=== PATIENT | female | born 1995 | race Caucasian/White ===

== ENCOUNTER 2016-11-25 18:21 | Emergency (ER) | payer BC ==
--- NOTE | ~2016-11-25 | ER ---
PATIENT'S NAME: [facility] AGE: 21 Y [address] ROOM: [place] [address] LOCATION: [facility] ADMIT DATE: 11/25/2016 ER/Outpatient Report DISCHARGE DATE: 11/25/2016 FAMILY PHYSICIAN: Physician, Unknown ATTENDING PHYSICIAN: Arnaud Abarca Admission date and time documented on the medical record. I saw the patient at 1835 hours. CHIEF COMPLAINT: Nausea, vomiting, diarrhea. HISTORY OF PRESENT ILLNESS: This patient is a 21-year-old female, who had abrupt onset of nausea, vomiting, perfuse watery diarrhea around 0300 hours this morning. Also, has some dysuria. Low-grade fever. No lightheadedness, dizziness, syncope or near syncope. No fall or trauma. Does have a generalized headache. No eyes, ears, nose, throat, neck, or spine pain. Generalized malaise. No chest pain or shortness of breath. Generalized abdominal pain more in the lower abdomen accompanied with nausea, vomiting and diarrhea. No joint or muscle swelling, redness, or pain. No skin eruptions or rash. No history of neuro changes, psych issues, endocrine problems. HOME MEDICATIONS: See attached medication list. ALLERGIES: PENICILLIN. SOCIAL HISTORY: Nonsmoker. Occasional intake of alcohol. SIGNIFICANT PAST MEDICAL HISTORY: Headaches, viral meningitis. OPERATIONS: Appendectomy. REVIEW OF SYSTEMS: All systems reviewed by me are negative with the exception of those discussed in the history of present illness. PHYSICAL EXAMINATION: VITAL SIGNS: Temperature 99.9 tympanic, pulse 138, respirations 17, blood pressure 196/72, O2 saturation on room air was 97%. PATIENT'S NAME: L[facility]Y [facility] AGE: 21 Y [address] ROOM: [place] [address] LOCATION: [facility] ADMIT DATE: 11/25/2016 ER/Outpatient Report DISCHARGE DATE: 11/25/2016 FAMILY PHYSICIAN: Physician, Unknown ATTENDING PHYSICIAN: Arnaud Abarca HEENT: Head: Normocephalic. Eyes: Clear. Ears: Clear TMs bilaterally. Nose: Clear. Throat: Clear. Mucous membranes moist. Teeth, jaw intact. NECK: No nuchal rigidity. No thyromegaly or cervical lymphadenopathy. SPINE: Nontender. No deformity. LUNGS: Clear. HEART: Regular. ABDOMEN: Soft. Some generalized tenderness especially in the lower abdomen. Bowel tones hyperactive. No organomegaly or abnormal mass palpable. No CVA tenderness. EXTREMITIES: No peripheral edema, cyanosis, or deformity. Neurovascularly intact. SKIN: Clear. No skin eruptions or rash. LABORATORY DATA: Procalcitonin was 0.12. Lactate was 1.4. CMS was normal except for an elevated glucose 129. Amylase and lipase were normal. CRP was elevated 1.05. White count 35699, 90 segs, 4 lymphs, 5 monos, hemoglobin was 15.3 with hematocrit 43.6, platelet count was 260963. PTT was 27, pro-time is 11.3 with an INR 1.08. Urine showed 0-2 whites, 0-2 reds, 2-5 epithelial cells, few bacteria with 4+ mucus, 2+ amorphous material per high-powered field. Stool PCR was positive for norovirus. IMPRESSION: Abrupt onset of nausea, vomiting, diarrhea secondary to norovirus. The patient has accompanied malaise and headache. PLAN: The patient was given IV normal saline, fluids, IV Zofran and Compazine for nausea, IV Benadryl and IV Toradol for headache. Discharged home. Observation. Activity as tolerated. Rest. Clear liquid diet for 24 hours and advance diet as tolerated. Zofran as needed for nausea, vomiting. Follow up with personal physician as needed. Discussion ensued with the patient concerning my findings and recommendations, she understands and agrees with treatment plan. MD CARLOS PILLAI/modl /[id number] d: 11/26/16 0146 t: 11/26/16 1809, OUTPATIENT REPORT
[~2016-11-25 18:21] MED LIST: IMITREX100 MG PO; MOTRIN800 MG PO
[2016-11-25 18:56] LABS: BASOPHIL % 0.2 %; HEMATOCRIT 43.6 % (33.0-46.0); HEMOGLOBIN 15.3 g/dL (11.0-15.0); IMMATURE GRANULOCYTE % 0.3 %; LYMPHOCYTE # 0.5 K/uL (0.8-4.0); LYMPHOCYTE % 4.3 %; MCH 30.7 pg (27.0-34.0); MCHC 35.1 gm/dL (32.0-36.5); MCV 87.4 fl (83.0-98.0); MONOCYTE # 0.6 K/uL (0.0-1.0); MONOCYTE % 4.8 %; MPV 10.1 fl (9.4-12.4); NEUTROPHIL # (ANC) 10.7 K/uL (1.8-7.8); NEUTROPHIL % 90.4 %; NRBC % 0 /100WBC (0-0.00); PLATELET COUNT 305 K/uL (150-450); RBC 4.99 M/uL (3.50-5.00); RDW-CV 11.7 % (11.9-14.6); WBC 11.9 K/uL (4.0-11.0)
[2016-11-25 19:06] LABS: BILIRUBIN URINE NEGATIVE (NEGATIVE); BLOOD URINE 25 /UL (NEGATIVE); COLOR URINE YELLOW (YELLOW); GLUCOSE URINE NEGATIVE (NEGATIVE); KETONE URINE 5 mg/dL (NEGATIVE); LEUKOCYTES URINE NEGATIVE /UL (NEGATIVE); NITRITE URINE NEGATIVE (NEGATIVE); PROTEIN URINE 15 mg/dL (NEGATIVE); TURBIDITY URINE 1+ (CLEAR); UROBILINOGEN URINE NORMAL (NORMAL)
[2016-11-25 19:06] LABS: INR - (THERAPEUTIC) 1.08 (0.92-1.07); PROTIME 11.3 SECONDS (9.8-11.4); PTT 27 SECONDS (25-32)
[2016-11-25 19:17] LABS: ALBUMIN 4.3 gm/dL (3.5-5.0); ALK PHOS 64 IU/L (33-138); ALT 21 IU/L (12-78); ANION GAP 13.7 (10.0-19.0); AST 21 IU/L (10-40); BLOOD UREA NITROGEN 18 mg/dL (6-24); CHLORIDE 105 mMol/L (96-110); CO2 22 mMol/L (22-32); CREATININE 0.9 mg/dL (0.5-1.1); ESTIMATED GFR (MDRD EQUATION) > 60; POTASSIUM 3.7 mMol/L (3.7-5.1); SODIUM 137 mMol/L (135-145); TOTAL BILIRUBIN 0.9 mg/dL (0.0-1.5)
[2016-11-25 19:21] LABS: RBC URINE 0-2 #/HPF (NEGATIVE); WBC URINE 0-2 #/HPF (NEGATIVE)
[2016-11-25 19:22] LABS: AMORPHOUS URINE 2+ (NEGATIVE); BACTERIA URINE FEW (NEGATIVE); MUCUS URINE 4+ (NEGATIVE)
[2016-11-25 21:47] LABS: ADENOVIRUS F 40/41 Not Detected (Not Detect); ASTROVIRUS Not Detected (Not Detect); C DIFFICILE TOXIN A/B Not Detected (Not Detect); CAMPYLOBACTER SPECIES Not Detected (Not Detect); CRYPTOSPORIDIUM Not Detected (Not Detect); CYCLOSPORA CAYETANENSIS Not Detected (Not Detect); E. COLI (EPEC) Not Detected (Not Detect); E. COLI (ETEC) Not Detected (Not Detect); E. COLI (STEC) Not Detected (Not Detect); ENTAMOEBA HISTOLYTICA Not Detected (Not Detect); GIARDIA LAMBLIA Not Detected (Not Detect); PLESIOMONAS SPECIES Not Detected (Not Detect); ROTAVIRUS A Not Detected (Not Detect); SALMONELLA SPECIES Not Detected (Not Detect); SAPOVIRUS Not Detected (Not Detect); SHIGELLA AND EIEC Not Detected (Not Detect); VIBRIO SPECIES Not Detected (Not Detect); YERSINIA ENTEROCOLITICA Not Detected (Not Detect)
[2016-11-25 21:49] LABS: NOROVIRUS GI/ GII DETECTED (Not Detect)
== END 2016-11-25 22:10 | disposition disaster alternative care site (69) ==
LOC: GMED 18:21
PROVIDERS: Emergency Medicine
DX: A08.11 Acute gastroenteropathy due to Norwalk agent (principal); R51 Headache; R53.81 Other malaise; Z88.0 Allergy status to penicillin; Z90.49 Acquired absence of other specified parts of digestive tract
CPT/HCPCS: J0780; J1200; J1885; J2405; J7030; Q9967